=== PATIENT | female | born 1940 | race Caucasian/White ===

== ENCOUNTER 2016-10-28 10:26 | Outpatient (CLI) | payer MEDICARE, BC ==
[2005-12-08 10:34] VITALS: BP 143/64
[~2016-10-28 10:26] MED LIST: ADVIL LIQUI-GE200 MG PO; ASPIRIN 81M81 MG/TA2 PO; ATROVENT NASAL15 ML NS; BONIVA150 MG PO; CALCIUM 600MG+D1 TAB PO; COMBIGAN 0.2%-0.5 ML OU; FISH OIL CONC1000 MG PO; K-DUR 10 MEQ T10 MEQ PO; LAMISIL1% TP; LUMIGAN 5 ML5 M1 OU; MAG-OX 400400 MG/TAB PO; MULTIVITAMIN1 CTB PO; NORVASC 5MG5 MG/TAB PO; OMEGA 31000 MG PO; SYNTHROID0.075 MG/T; TIMOPTIC OCUDOSE0.5% OP; TOPROL XL100 MG PO; TYLENOL 325MG325 MG PO; XALATAN EYE DROPS OD
[2016-10-28 11:27] LABS: HEMOGLOBIN 18.2 g/dl (12.5-16.0)
[2016-10-28 12:05] LABS: HEMATOCRIT 53.7 % (37.0-47.0)
[2016-10-28 13:33] VITALS: BP 92/57; PULSE 67; TEMP 98.2
== END 2016-10-28 14:30 | disposition home or self-care (01) ==
LOC: COL.LAB 10:26
PROVIDERS: Internal Medicine
DX: Z01.89 Encounter for other specified special examinations (principal)
CPT/HCPCS: J7040

== ENCOUNTER → 2016-10-30 | Outpatient (CLI) | payer MEDICARE, BC | LOC: MC.RAD 10:49 | DX: Z12.31 Encounter for screening mammogram for malignant neoplasm of breast (principal) ==

== ENCOUNTER 2017-10-16 10:36 | Emergency (ER) | payer MEDICARE, BC ==
[2005-12-08 10:34] VITALS: BP 143/64
[~2017-10-16] VITALS: Ht 149.9 cm; Wt 52.3 kg
[2017-10-16 10:41] VITALS: BP 111/63; TEMP 98.3
[2017-10-16] MEDS ORDERED: XALATAN EYE DROPS OU (11:27)
[2017-10-16] MEDS ORDERED: BETIMOL 0.5% OPH5 ML OU (11:27)
[2017-10-16] MEDS ORDERED: SYNTHROID0.05 MG/TA PO (11:32)
[2017-10-16] MEDS ORDERED: LIDODERM 5% PATC1 EA TP (12:07)
[2017-10-16 12:23] VITALS: PULSE 72
== END 2017-10-16 12:25 | disposition home or self-care (01) ==
LOC: COL.ER 10:36
DX: M54.6 Pain in thoracic spine (principal); Z79.82 Long term (current) use of aspirin
CPT/HCPCS: J1885

== ENCOUNTER → 2017-12-22 | Outpatient (REF) ==
[~2017-12-22] MED LIST changes: +BETIMOL 0.5% OPH5 ML OU; +LIDODERM 5% PATC1 EA TP; +SYNTHROID0.05 MG/TA PO; +XALATAN EYE DROPS OU
[2017-12-22 11:52] LABS: HEMATOCRIT 37.3 % (37.0-47.0); HEMOGLOBIN 13.3 g/dl (12.5-16.0); MEAN CELL VOLUME 95 fl (80.0-100.0); MEAN CORPUSCULAR HEMOGLOBIN 34 pg (27.0-31.0); MEAN CORPUSCULAR HGB CONC 36 g/dl (33.0-37.0); MEAN PLATELET VOLUME 12.6 fl (7.4-10.4); PLATELET COUNT 154 K/mm3 (130-400); RED BLOOD COUNT 3.93 M/mm3 (4.10-5.30); REDCELL DISTRIBUTION WIDTH-CV 13.6 % (11.5-14.5)
[2017-12-22 12:01] LABS: ALBUMIN 2.9 gm/dL (3.5-5.0); BILIRUBIN,TOTAL 3.1 mg/dL (0.0-1.0); CALCIUM 9.6 mg/dL (8.4-10.2); CREATININE, serum 0.76 mg/dL (0.52-1.25); POTASSIUM 3.7 mmol/L (3.4-5.0); TOTAL PROTEIN 5.4 gm/dL (6.4-8.2)
[2017-12-22 12:21] LABS: BAND 21 % (0-10); LYMPHOCYTE 1 % (20.0-51.0); NEUTROPHILS 73 % (42.0-75.2); PLATELET ESTIMATE NORMAL (NORMAL)
== END ==
LOC: ZCOL.LAB 11:45
PROVIDERS: Internal Medicine
DX: D45 Polycythemia vera (principal)